=== PATIENT | male | born 1935 | race Caucasian/White ===

== ENCOUNTER 2018-05-08 14:48 | Inpatient (IN) | payer MEDICARE, OTHER ==
[~2018-05-08] VITALS: Ht 170.2 cm; Wt 96.6 kg
[2018-05-08] VITALS (8 sets, daily range): BP systolic 105–157; BP diastolic 51–79
--- NOTE | 2018-05-08 13:24 | NUR ---
report received from Diego Reyes;
--- NOTE | 2018-05-08 14:48 | NUR ---
male pt received from [facility] via stretcher accompanied by [facility] in stable condition; transferred to bed; bedside report received; admission assessment completed at this time; pt alert and oriented; denies any discomfort; c/c of ble weakness/inability to transfer with assistance and muscle tension to ble; denies chest pain/ faint feeling/ lightheadedness; resp even and unlabored; lungs clear throughout; skin color wnl; ra; hr irreg; strong pulses; 3+ edema noted to ble; various rhythms noted on monitor/ afib, sr with 1st degree/ Mobitiz I; abd soft/distended with bs present; no bm noted per newspaper writer; pt admits to voiding without complication; no urine to inspect at this time; urinal at bedside; #20 in lac saline locked; no redness or edema noted at site; plan of care/monitoring attachments explained; pt oriented to bed and call light system; will continue to monitor
--- NOTE | 2018-05-08 16:00 | NUR ---
pt awake in bed; offers no complaints; no distress noted; primarly afib on monitor with slow response; hr 33-52; denies syncope/faint feeling; iv intact/ flushed and patent; Suzi River NP at bedside to assess pt and discuss plan of care; po fluids provided; call light within reach; will continue to monitor
--- NOTE | 2018-05-08 16:51 | NUR ---
chemical laboratory scientist at bedside to obtain blood
[2018-05-08] MEDS ORDERED: ALLOPURINOL100 MG PO (16:54)
[2018-05-08] MEDS ORDERED: LOVASTATIN40 M1 PO (16:55)
[2018-05-08] MEDS ORDERED: AMLODIPINE5 MG PO (16:56)
[2018-05-08] MEDS ORDERED: LOSARTAN POT100 MG PO (16:56)
[2018-05-08] MEDS ORDERED: HYDROCHLOROT25 MG PO (16:57)
[2018-05-08] MEDS ORDERED: RESTASIS0.05 % OU (16:59)
[2018-05-08] MEDS ORDERED: ASPIRIN 81 LOW81 MG PO (17:00)
[2018-05-08] MEDS ORDERED: CENTRUM PO (17:00)
[2018-05-08] MEDS ORDERED: TURMERIC CURCU500 MG PO (17:01)
[2018-05-08 17:06] LABS: HEMATOCRIT 39.5 % (39.0-50.0); MEAN CELL VOLUME 100.5 fL CALC (80.0-100.0); MEAN CORPUSCULAR HGB 33.1 pG CALC (26.0-32.0); MEAN CORPUSCULAR HGB CONC 32.9 g/L CALC (32.0-36.0); RED BLOOD COUNT 3.93 mill/uL (4.70-6.10); RED CELL DISTRI WIDTH 12.3 % (11.5-15.5)
[2018-05-08] MEDS ORDERED: MOTRIN800 MG PO (17:06)
[2018-05-08 17:32] LABS: ALBUMIN 3.4 g/dL (3.2-5.0); ALKALINE PHOSPHATASE 62 u/l (38-126); ANION GAP 9 (6-22 (CALC)); BILIRUBIN, TOTAL 0.6 mg/dL (0.0-1.4); BUN 30 mg/dL (8-23); BUN/CREATININE RATIO 26 (12-20 (CALC)); CALCULATED LDLCHOLESTEROL 80 mg/dL (62-129 (CALC)); CARBON DIOXIDE 27 mmol/l (22-30); CHLORIDE 107 mmol/l (95-108); CREATININE 1.2 mg/dL (0.7-1.3); GFR 58 ML/MIN (>=60 (CALC)); GFR FOR AFR.AMER. > 60 ML/MIN (>=60 (CALC)); HDL CHOLESTEROL 51 mg/dL (>=40); POTASSIUM 4.3 mmol/l (3.5-5.1); SGOT/AST 21 u/l (19-48); SODIUM 139 mmol/l (137-146); TOTAL CHOLESTEROL 152 mg/dl (0-199); TOTAL PROTEIN 6.2 g/dL (6.3-8.2); TOTAL TRIGLYCERIDES 105 mg/dl (30-149); VLDL CHOLESTROL 21 mg/dl (0-38 (CALC))
--- NOTE | 2018-05-08 18:16 | NUR ---
awake in bed; no distress noted; pt offers no complaints; iv intact; no redness or edema noted at site; sr/ 1st on monitor at current time; hr 65; pt denies needs; bed in lowest position; call light within reach; will continue to monitor
--- NOTE | 2018-05-08 19:40 | NUR ---
awake. denies distress. skin care consultant shows a fib pvcs hr 40's also occas mobitz 1 hr 35. #20 lac saline lock. po fluids taken well. voids per urinal. fall precautions cont. spoke to pt @ length about poss need for pacemaker. pt verbalized understanding.
--- NOTE | 2018-05-08 22:00 | NUR ---
reading. denies distress. cafeteria monitor shows anna marieitz 1 hr 35-40.
[2018-05-09] VITALS (16 sets, daily range): BP systolic 91–166; BP diastolic 51–80
--- NOTE | 2018-05-09 00:01 | NUR ---
satellite project site monitor shows sinus jaimee 1st degree avb hr 37.
--- NOTE | 2018-05-09 00:15 | NUR ---
lab here. blood drawn.
--- NOTE | 2018-05-09 02:00 | NUR ---
resting quietly. resps even & unlabored. blasting helper shows sinus jaimee 1st degree avb hr 39.
--- NOTE | 2018-05-09 04:00 | NUR ---
awake. denies c/o. no apparent distress.
--- NOTE | 2018-05-09 05:58 | NUR ---
awake. no distress. bus driver/monitor shows mobitz 1 hr 44.
--- NOTE | 2018-05-09 06:03 | NUR ---
heart rate has been as low as 29 this shift.
--- NOTE | 2018-05-09 06:14 | NUR ---
lab here. blood drawn.
--- NOTE | 2018-05-09 07:05 | NUR ---
pt resting in bed with eyes closed; no distress noted; easily aroused; pt offers no complaints; assessment completed at this time; pt alert and oriented; denies pain/palpitations; denies dizziness/weakness/lightheadedness; resp even and unlabored; lungs clear; skin color wnl; ra; hr irreg; strong pulses; 3+ edema noted to ble; afib pvc on monitor; occ wenckebach and sb with 1st degree; hr low 30s at this time; pt remains asymptomatic; abd soft with bs present; no bm noted per engineering writer; pt voiding clear yellow urine without complication; urinal at bedside; #20 in lac flushed and patent; no redness or edema noted at site; discoloration noted to ble; plan of care/ am meds explained; call light within reach; will continue to monitor
--- NOTE | 2018-05-09 07:55 | NUR ---
Dr Blandon called this time; report given; informed MD of various rhythms and bradycardia 30s; strips to be faxed to [phone] for review; pt will possibly transfer to [facility] today for pacer; will conitnue to monitor
--- NOTE | 2018-05-09 08:09 | NUR ---
awake in bed watching television; no distress noted; pt offers no complaints; iv intact; sb 1st depress on monitor; pt denies needs; updated on plan of care; call light within reach; will continue to monitor
--- NOTE | 2018-05-09 09:00 | NUR ---
clarification received fron Suzi River NP in regards to Elquis and possible pacemaker placement today; orders received to administered as per orders
--- NOTE | 2018-05-09 09:01 | NUR ---
Suzi River NP present at bedside to assess pt and discuss plan of care
--- NOTE | 2018-05-09 09:50 | NUR ---
Dr Soria and Suzi River, TASSEL MAKER at bedside to assess pt and discuss plan of care
--- NOTE | 2018-05-09 10:13 | NUR ---
pt awake in bed; offers no complaints; no distress noted; jaimee 41 on monitor; iv intact; call light within reach; will continue to monitor
--- NOTE | 2018-05-09 10:25 | NUR ---
[facility] transfer center called per marketing copywriter; spoke with Elida; Elida informed this marketing copywriter Dr Blandon has called early this morning and they are working on a bed;
--- NOTE | 2018-05-09 12:11 | NUR ---
awake sitting on side of bed eating lunch and talking on portable phone with daughter; no distress noted; pt offers no complaints; iv intact; jaimee on monitor/hr 48; call light within reach; will continue to monitor
--- NOTE | 2018-05-09 13:19 | NUR ---
construction or leak gang laborer at bedside; pt refused labs d/t pending transfer to [facility]
--- NOTE | 2018-05-09 13:32 | NUR ---
visitors x2 at bedside
[2018-05-09 13:34] LABS: URINE BILIRUBIN - DIPSTICK NEGATIVE (NEGATIVE); URINE BLOOD DIPSTICK NEGATIVE (NEGATIVE); URINE COLOR YELLOW; URINE GLUCOSE - DIPSTICK NEGATIVE (NEGATIVE); URINE KETONE NEGATIVE (NEGATIVE); URINE LEUK ESTERASE NEGATIVE (NEGATIVE); URINE NITRITE - DIPSTICK NEGATIVE (Negative); URINE PH 6.5 (4.5-8.0); URINE PROTEIN - DIPSTICK NEGATIVE (NEG-TRACE); URINE SPECIFIC GRAVITY <=1.005; URINE UROBILINOGEN - DIPSTICK 0.2 E.U./dL (0.2)
[2018-05-09 13:36] LABS: URINE CLARITY CLEAR
[2018-05-09 13:41] LABS: ANION GAP 10 (6-22 (CALC)); BUN 27 mg/dL (8-23); BUN/CREATININE RATIO 25 (12-20 (CALC)); CARBON DIOXIDE 25 mmol/l (22-30); CHLORIDE 109 mmol/l (95-108); CREATININE 1.1 mg/dL (0.7-1.3); GFR > 60 ML/MIN (>=60 (CALC)); GFR FOR AFR.AMER. > 60 ML/MIN (>=60 (CALC)); POTASSIUM 4.2 mmol/l (3.5-5.1); SODIUM 140 mmol/l (137-146)
--- NOTE | 2018-05-09 14:11 | NUR ---
awake in bed; spouse present at bedside; no distress noted; pt offers no complaints; bradycardia on monitor; call light within reach; will continue to monitor
--- NOTE | 2018-05-09 15:05 | NUR ---
ROSELYN Marrero called per teletypewriter operator; no bed available at this time
--- NOTE | 2018-05-09 15:30 | NUR ---
call received from [facility]; bed assignment received; pt going to bed [id number] report to be called at [phone]
--- NOTE | 2018-05-09 15:45 | NUR ---
[facility] transport called per chief writer; spoke with Reina; info provided; ETA 30-40 minutes
--- NOTE | 2018-05-09 15:58 | NUR ---
awake in bed; no distress noted; pt offers no complaints; iv intact; bradycardia on monitor; hr 44; ETA of transfer explained; pt denies needs at this time; call light within reach; will continue to monitor
--- NOTE | 2018-05-09 16:20 | NUR ---
report called to ROSELYN Jerome RN;
--- NOTE | 2018-05-09 17:02 | NUR ---
1648- [facility] on unit to receive pt; report given 1704- pt discharged with [facility] in stable condition; pt belongings sent with pt;
--- NOTE | 2018-05-09 17:03 | NUR ---
Gayle (spouse) called as per pt request; no answer; message left informing spouse pt has been discharged Renae (daughter) called as per pt request; daughter updated pt has been transferred
== END 2018-05-09 17:02 | disposition short-term general hospital (02) | DRG 310 ==
LOC: ICU 14:48
PROVIDERS: Nurse Practitioner Family; ADMIT Internal Medicine; ATTEND Internal Medicine
DX: I49.5 Sick sinus syndrome (principal); I48.91 Unspecified atrial fibrillation; R00.1 Bradycardia, unspecified; I44.0 Atrioventricular block, first degree; I11.0 Hypertensive heart disease with heart failure; I50.9 Heart failure, unspecified; E78.5 Hyperlipidemia, unspecified; M10.9 Gout, unspecified; M19.90 Unspecified osteoarthritis, unspecified site; G62.1 Alcoholic polyneuropathy; R60.0 Localized edema; I87.8 Other specified disorders of veins; Z72.89 Other problems related to lifestyle

== ENCOUNTER → 2018-09-08 | Outpatient (REF) | payer MEDICARE, OTHER ==
[~2018-09-08] MED LIST: ALLOPURINOL100 MG PO; AMLODIPINE5 MG PO; ASPIRIN 81 LOW81 MG PO; CENTRUM PO; HYDROCHLOROT25 MG PO; LOSARTAN POT100 MG PO; LOVASTATIN40 M1 PO; MOTRIN800 MG PO; RESTASIS0.05 % OU; TURMERIC CURCU500 MG PO
== END | disposition home or self-care (01) ==
LOC: STRESS 13:27 → NUCMED 14:15
PROVIDERS: ATTEND Internal Medicine
DX: R94.31 Abnormal electrocardiogram [ECG] [EKG] (principal); I44.1 Atrioventricular block, second degree; I49.5 Sick sinus syndrome
CPT/HCPCS: A9502; J2785